=== PATIENT | male | born 1955 | race Caucasian/White ===

== ENCOUNTER 2022-09-22 10:11 | Emergency (ER) | payer OTHER, MEDICARE ==
[2022-09-22] MEDS ORDERED: Lidocaine 1% 30 ML SDV INJECT ONE (10:34)
[2022-09-22] MEDS ORDERED: Acetaminophen/HYDROcodone 325-10 MG Tab PO ONE (12:18)
== END 2022-09-22 12:30 | disposition home or self-care (01) ==
LOC: VM.ED 10:11
DX: S01.312A Laceration without foreign body of left ear, initial encounter (principal); Z88.8 Allergy status to other drugs, medicaments and biological substances; Z79.82 Long term (current) use of aspirin; V49.40XA Driver injured in collision with unspecified motor vehicles in traffic accident, initial encounter; Y92.410 Unspecified street and highway as the place of occurrence of the external cause
CPT/HCPCS: 12015; 70450; 99284; A9270-GY